=== PATIENT | female | born 1995 | race Caucasian/White ===

== ENCOUNTER → 2022-06-08 11:08 | Outpatient (BNVA) | payer OTHER, SELFPAY | PROVIDERS: Visit Provider Family Medicine | DX: F32.A Depression, unspecified (principal); F41.9 Anxiety disorder, unspecified; F90.9 Attention-deficit hyperactivity disorder, unspecified type; Z76.89 Persons encountering health services in other specified circumstances; R79.89 Other specified abnormal findings of blood chemistry | CPT/HCPCS: 80053; 84439; 84443; 85025 ==

== ENCOUNTER → 2022-08-02 11:25 | Outpatient (BNVA) | payer OTHER, SELFPAY | PROVIDERS: PCP Family Medicine; Visit Provider Family Medicine | DX: N39.0 Urinary tract infection, site not specified (principal); M79.671 Pain in right foot | CPT/HCPCS: 81000 ==

== ENCOUNTER → 2022-08-09 08:49 | Outpatient (BNVA) | payer OTHER, SELFPAY | PROVIDERS: PCP Family Medicine; Visit Provider Podiatrist Foot & Ankle Surgery | DX: T84.84XA Pain due to internal orthopedic prosthetic devices, implants and grafts, initial encounter (principal); Y79.2 Prosthetic and other implants, materials and accessory orthopedic devices associated with adverse incidents | CPT/HCPCS: 73630 ==

== ENCOUNTER 2022-08-29 10:34 | Emergency (ER) | payer OTHER, SELFPAY ==
[2022-08-29 10:49] VITALS: BP 122/80; PULSE 100; RESP 20; TEMP 36.4; O2SAT 99; BMI 25.2
[2022-08-29 11:21] VITALS: BP 105/65; PULSE 74; RESP 18; O2SAT 100
[2022-08-29 11:30] LABS: Basophils # 0.1 10^3/uL (0.0-0.1); Eosinophils # 0.1 10^3/uL (0.0-0.8); Eosinophils % 1.3 %; Lymphocytes # 1.8 10^3/uL (0.8-4.8); Lymphocytes % 26.5 %; Mean Corpuscular HGB Conc 34.9 g/dL (30.0-36.0); Mean Corpuscular Hemoglobin 30.7 pg (28.0-34.0); Mean Corpuscular Volume 87.9 fl (81-99); Mean Platelet Volume 9.6 fL (7.4-10.4); Monocytes # 0.6 10^3/uL (0.2-0.9); Monocytes % 9.2 %; Neutrophils # 4.12 10^3/uL (1.8-7.7); Neutrophils % 61.6 %; Nucleated Red Blood Cells % 0 %; Platelet Count 290 10^3/cmm (130-400); Red Blood Count 4.89 10^6/uL (4.1-5.3); Red Cell Distribution Width 11.4 % (12.1-15.1); White Blood Count 6.7 10^3/uL (4.0-10.0)
[2022-08-29 11:52] LABS: Alanine Aminotransferase 7 U/L (0-33); Albumin Level 4.6 g/dL (3.5-5.2); Alkaline Phosphatase 51 U/L (35-105); Anion Gap 14.1 (5-19); Aspartate Amino Transferase 15 U/L (0-32); Blood Urea Nitrogen 11 mg/dL (6-20); Calcium 9.8 mg/dL (8.5-10.5); Carbon Dioxide 27 mmol/L (22-29); Chloride 100 mmol/L (98-107); Globulin 2.8 g/dL (1.3-4.6); Glomerular Filtration Rate 100.4 mL/min (90-130); Glucose 88 mg/dL (65-115); Lipase 27 U/L (13-60); Osmolality Calculated 283 mOsm/kg (285-295); Potassium 4.1 mmol/L (3.5-5.1); Sodium 137 mmol/L (136-145); Total Bilirubin 1.5 mg/dL (0.15-1.2); Total Protein 7.4 g/dL (6.6-8.7)
[2022-08-29 12:07] LABS: HCG, Serum Qual Negative (Negative)
--- NOTE | 2022-08-29 12:10 | ED_ITS ---
HPI - Abdominal Pain General: Chief Complaint: Abdominal Pain Stated Complaint: LRQ abd pain Time Seen by Provider: 08/29/22 11:32 History of Present Illness: Patient presents to the ER with complaints of right-sided abdominal pain that started today at 9 AM. Patient also complains of some nausea with pain but denies any diarrhea vomiting. Patient says she has passed some gas which helped for a minimal amount of time but then the pain came right back. Patient says the pain is achy with intermittent episodes of sharp and stabbing this. MD elicited complaint: abdominal pain Pertinent past history: none Onset (ago): hour(s) (Proximately 3 hours ago) Pain Consistency: constant and colicky Location: RUQ and RLQ Severity: mild Quality: stabbing, aching and fullness Radiation: none Migration to: no migration Exacerbating factors: nothing Relieving factors: nothing Associated Symptoms: Reports nausea; Denies chills, diarrhea, dysuria, fever(s) and vomiting Review of Systems General: Reports: 10 or more systems reviewed and unremarkable except in HPI and below Const: Denies: fever(s) or chills Eyes: Denies: change in vision or photophobia ENMT: Denies: throat pain or odynophagia Card: Denies: chest pain, palpitations or irregular heart rhythm Resp: Denies: dyspnea, productive cough or non-productive cough GI: Reports: abdominal pain and nausea; Denies: vomiting or diarrhea : Denies: flank pain, difficulty voiding or dysuria Musc: Denies: neck pain or back pain Skin/Breast: Denies: rash or skin pain PFSH ED PFSH: Family History Mother Cancer Lung cancer Social History Smoking and tobacco status: never smoked Second hand smoke exposure: Yes Smoking risk assessment/counseling performed?: No Alcohol intake: current Alcohol intake frequency: few times a week Substance/Drug Use: never Desire information about substance/drug rehabilitation?: No Counseling given: No Adopted: No Caregiver/support person: No Lives independently: Yes Household members: spouse Housing: House Marital status: Life Partner Highest education level completed: Bachelor's Degree Current occupational status: employed 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 Current occupational exposures/hazards: No Pets and animals: No Sexually active: Yes Do you think of yourself as: Straight/Heterosexual Current gender identity: Female Physical Exam Const: COMMON NORMALS: no acute distress, average body habitus, patient oriented x3, no limitations, healthy appearing, alert and well nourished HENMT: COMMON NORMALS: normocephalic, atraumatic, hearing grossly normal bilaterally, external ears normal, Normal external nose present and moist oral mucous membranes HEAD & SCALP: normocephalic and atraumatic NOSE: Normal external nose present EXTERNAL EAR: Yes external ears normal Eye: COMMON NORMALS: Equal, round and reactive pupils present, EOMs intact bilaterally, conjunctivae normal and no scleral icterus CONJUNCTIVA: Yes conjunctivae normal PUPIL: Yes Equal, round and reactive pupils present Neck/C-Spine: COMMON NORMALS: full ROM, no lymphadenopathy, supple, no meningeal signs, no JVD and Thyroid normal THYROID: Thyroid normal Lymph: LYMPHATIC: no lymphadenopathy noted Chest: COMMONS NORMALS: normal inspection of the chest and normal palpation of entire chest wall Resp: COMMON NORMALS: normal respiratory effort, No retractions, No use of accessory muscles and clear to auscultation bilaterally AUSCULTATION: clear to auscultation bilaterally Cardio: COMMON NORMALS: no JVD, regular rate, S1 normal heart sound present, S2 normal heart sound present, No gallops present (Cardio), No clicks present (Cardio), No murmurs present (Cardio) and No rub (Cardio) RATE: regular rate HEART SOUNDS: S1 normal heart sound present and S2 normal heart sound present GI: COMMON NORMALS: Soft to palpation INSPECTION: Yes normal to inspection AUSCULTATION: Yes Hypoactive bowel sounds present PALPATION: Yes Soft to palpation and Yes Tenderness to palpation present (GI) Details: RLQ and RUQ : COMMON NORMALS: Yes no CVA tenderness BLADDER/KIDNEY EXAM: Yes no CVA tenderness Back/Pelvis: COMMON NORMALS: no CVA tenderness Neuro: COMMON NORMALS: patient oriented x3 SENSORIUM/ORIENTATION: Yes alert MENINGEAL SIGNS: Yes no meningeal signs Course Vital Signs: Vital signs: Vital Signs Temperature 97.5 F L 08/29/22 10:49 Pulse Rate 76 08/29/22 13:00 Respiratory Rate 18 08/29/22 13:00 Blood Pressure 104/66 08/29/22 13:00 Pulse Oximetry 100 08/29/22 13:00 Oxygen Delivery Me thod Room Air 08/29/22 13:00 MDM - Abdominal Pain Medical Decision Making Patient presents to the ER with complaints of right-sided abdominal pain with n ausea. Patient did state that she passed out with a gas and felt a gas move around her abdomen which helped for a little bit. Physical exam was performed which showed right sided abdomen abdominal and pelvic tenderness. Lab work was obtained which was essentially benign as well as was the x-ray and CT. Urinalysis did show 3+ blood in her urine. Due to all these findings patient will be discharged home and is to follow-up with her primary care practitioner within the next 1 week. As patient may benefit from a urologist appointment if she continues to have blood in her urine. Differential Diagnosis Likely abdominal pain; Unlikely acute appendicitis, calculus of kidney, constipation, diverticulitis, endometriosis, gastroenteritis, pancreatitis or small bowel obstruction Medical Records I reviewed the patient's medical records. Lab Data I reviewed the patient's lab results. 08/29/22 11:25 08/29/22 11:25 Labs/Radiology: Radiology Impressions Abdomen X-Ray 08/29/22 12:18 IMPRESSION: No acute findings. Abdomen/Pelvis CT 08/29/22 12:55 IMPRESSION: 1. Normal noncontrast CT abdomen and pelvis. 2. No renal or ureteral calcification or obstruction. 3. Normal appendix. Laboratory Results WBC 6.7 10^3/uL (4.0-10.0) 08/29/22 11:25 RBC 4.89 10^6/uL (4.1-5.3) 08/29/22 11:25 Hgb 15.0 g/dL (11.5-15.3) 08/29/22 11:25 Hct 43.0 % (37.0-47.0) 08/29/22 11:25 MCV 87.9 fl (81-99) 08/29/22 11:25 MCH 30.7 pg (28.0-34.0) 08/29/22 11:25 MCHC 34.9 g/dL (30.0-36.0) 08/29/22 11:25 RDW 11.4 % (12.1-15.1) L 08/29/22 11:25 Plt Count 290 10^3/cmm (130-400) 08/29/22 11:25 MPV 9.6 fL (7.4-10.4) 08/29/22 11:25 Neut % (Auto) 61.6 % 08/29/22 11:25 Lymph % (Auto) 26.5 % 08/29/22 11:25 [place] % (Auto) 9.2 % 08/29/22 11:25 Eos % (Auto) 1.3 % 08/29/22 11:25 Baso % (Auto) 1.0 % 08/29/22 11:25 Neut # (Auto) 4.12 10^3/uL (1.8-7.7) 08/29/22 11:25 Lymph # (Auto) 1.8 10^3/uL (0.8-4.8) 08/29/22 11:25 [place] # (Auto) 0.6 10^3/uL (0.2-0.9) 08/29/22 11:25 Eos # (Auto) 0.1 10^3/uL (0.0-0.8) 08/29/22 11:25 Baso # (Auto) 0.1 10^3/uL (0.0-0.1) 08/29/22 11:25 Nucleated RBC % (auto) 0 % 08/29/22 11:25 Nucleated RBCs # 0.0 /100WBC 08/29/22 11:25 Sodium 137 mmol/L (136-145) 08/29/22 11:25 Potassium 4.1 mmol/L (3.5-5.1) 08/29/22 11:25 Chloride 100 mmol/L (98-107) 08/29/22 11:25 Carbon Dioxide 27 mmol/L (22-29) 08/29/22 11:25 Anion Gap 14.1 (5-19) 08/29/22 11:25 BUN 11 mg/dL (6-20) 08/29/22 11:25 Creatinine 0.7 mg/dL (0.5-0.9) 08/29/22 11:25 GFR Calculation 100.4 mL/min (90-130) 08/29/22 11:25 Glucose 88 mg/dL (65-115) 08/29/22 11:25 Calculated Osmolality 283 mOsm/kg (285-295) L 08/29/22 11:25 Calcium 9.8 mg/dL (8.5-10.5) 08/29/22 11:25 Total Bilirubin 1.5 mg/dL (0.15-1.2) H 08/29/22 11:25 AST 15 U/L (0-32) 08/29/22 11:25 ALT 7 U/L (0-33) 08/29/22 11:25 Alkaline Phosphatase 51 U/L (35-105) 08/29/22 11:25 Total Protein 7.4 g/dL (6.6-8.7) 08/29/22 11:25 Albumin 4.6 g/dL (3.5-5.2) 08/29/22 11:25 Globulin 2.8 g/dL (1.3-4.6) 08/29/22 11:25 Lipase 27 U/L (13-60) 08/29/22 11:25 HCG, Qual Negative (Negative) 08/29/22 11:25 Urine Color Yellow (Yellow) 08/29/22 12:20 Urine Appearance Hazy (CLEAR) A 08/29/22 12:20 Urine pH 6 (5-7) 08/29/22 12:20 Ur Specific [place] 1.015 (1.005-1.030) 08/29/22 12:20 Urine Protein Neg (Negative) 08/29/22 12:20 Urine Glucose (UA) Norm (Normal) 08/29/22 12:20 Urine Ketones Negative (Negative) 08/29/22 12:20 Urine Blood 3+ (Negative) H 08/29/22 12:20 Urine Nitrate Negative (Negative) 08/29/22 12:20 Urine Bilirubin Neg (Negative) 08/29/22 12:20 Urine Urobilinogen Norm mg/dL (Negative) 08/29/22 12:20 Ur Leukocyte Esterase Negative (Negative) 08/29/22 12:20 Urine RBC 40-50 /hpf (0-2) H 08/29/22 12:20 Urine WBC 5-10 /hpf (0-5) H 08/29/22 12:20 Ur Squamous Epith Cells 5-10 /hpf (0-5) H 08/29/22 12:20 Amorphous Sediment Not Reportable 08/29/22 12:20 Urine Bacteria Trace /hpf (NONE) 08/29/22 12:20 Urine Mucus 4+ /hpf 08/29/22 12:20 Discharge Plan Discharge Patient Disposition: Home Clinical Impression: Abdominal pain, Hematuria Condition: Stable Prescriptions: No Action escitalopram oxalate [Lexapro] 10 mg tablet 10 mg PO DAILY Qty: 30 5RF dextroamphetamine-amphetamine [Adderall] 10 mg tablet See Rx Instructions .ROUTE .COMPLEX 30 Days Qty: 45 0RF Rx Instructions: Take one tablet in the morning and 1/2 tablet in the afternoon. Discharge Orders: Discharge ED (Routine); Ordered 08/29/22 Ordered By: Juan R Lowry Referrals: Sonny Greco DO [Primary Care Provider] - 1 week Patient Instructions: Hematuria - Female, Abdominal Pain (ED) Coding Level of Care Code ED Practice Consultant for Elizabeth Faith
--- NOTE | 2022-08-29 12:18 | XRR_ITS ---
PROCEDURE INFORMATION: Exam: XR Abdomen Exam date and time: 08/29/2022 12:43 PM Age: 26 years old Clinical indication: Abdominal pain; Additional info: Abd pain TECHNIQUE: Imaging protocol: Radiologic exam of the abdomen. Views: Frontal supine view of the abdomen. 1 View. COMPARISON: No relevant prior studies available. FINDINGS: Gastrointestinal tract: Normal. No bowel dilation. Bones/joints: Unremarkable. XR/XR abdomen 1V* [id number] IMPRESSION: No acute findings.
[2022-08-29 12:49] LABS: Add Urine Microscopic? YES; Bilirubin Urine Neg (Negative); Blood Urine 3+ (Negative); Glucose Urine UA Norm (Normal); Ketones Urine Negative (Negative); Leukocyte Esterase Urine Negative (Negative); Nitrate Urine Negative (Negative); Protein Urine Neg (Negative); RBC Urine 40-50 /hpf (0-2); Specific Gravity, Urine 1.015 (1.005-1.030); Urine Appearance Hazy (CLEAR); Urine Color Yellow (Yellow); Urobilinogen Urine Norm (Negative); pH Urine 6 (5-7)
[2022-08-29 12:50] LABS: Add Urine Culture? No; Bacteria Urine TRACE /hpf; Mucus Urine 4+ /hpf
--- NOTE | 2022-08-29 12:55 | CT_ITS ---
WS: [id number] CT ABDOMEN AND PELVIS NONCONTRAST HISTORY: right abd pain, hematuria TECHNIQUE: Imaging performed through the abdomen and pelvis. Coronal and sagittal reformats are submi tted. All CT scans at [facility] use at least one of these dose optimization techniques: auto mated exposure control; mA and/or kV adjustment per patient size (includes targeted exams where dose is matched to clinical indication); or iterative reconstruction. DLP: 591.63 mGy.cm COMPARISON: None available. Lower thorax: Lung bases are clear. Visualized heart is normal. No hiatal hernia. Liver: Normal size liver. No mass or bile duct dilatation. Gallbladder: Normal gallbladder. No pericholecystic fluid or cholelithiasis. No gallbladder wall thic kening. Pancreas: Normal size and attenuation. Normal pancreatic duct. No pancreatitis or mass. Spleen: Normal. Adrenal glands: Normal. No mass. Right kidney: Normal size kidney with no mass or hydronephrosis. Left kidney: Normal size kidney with no mass or hydronephrosis. Aorta: Normal abdominal aorta, no aneurysm or atherosclerosis. No free fluid, intraperitoneal air or significant lymphadenopathy. GI tract: Normal noncontrast imaging of the stomach, small bowel and colon. No obstruction or wall th ickening. Normal appendix. Abdominal wall: Small umbilical hernia contains fat only. Pelvis: No free fluid or adenopathy. Normal uterus. Ovaries are both identified and contain small fol licles. Osseous structures: Unremarkable. CT/CT abdomen pelvis wo con [id number] IMPRESSION: 1. Normal noncontrast CT abdomen and pelvis. 2. No renal or ureteral calcification or obstruction. 3. Normal appendix.
[2022-08-29 13:00] VITALS: BP 104/66; PULSE 76; RESP 18; O2SAT 100
[2022-08-29 15:00] VITALS: BP 104/66; PULSE 76; RESP 18; O2SAT 100
== END 2022-08-29 15:01 | disposition home or self-care (01) ==
PROVIDERS: Family Medicine; Emergency Provider Emergency Medicine; PCP Family Medicine
DX: R10.31 Right lower quadrant pain (principal); R31.9 Hematuria, unspecified; Z77.22 Contact with and (suspected) exposure to environmental tobacco smoke (acute) (chronic)
CPT/HCPCS: 36415; 74018; 74176; 80053; 81001; 83690; 84703; 85025; 99284

== ENCOUNTER → 2022-08-31 10:57 | Outpatient (BNVA) | payer OTHER, SELFPAY | PROVIDERS: PCP Family Medicine; Visit Provider Family Medicine | DX: R10.9 Unspecified abdominal pain (principal); R31.9 Hematuria, unspecified | CPT/HCPCS: 81000 ==